=== PATIENT | male | born 1975 | race Asian ===

== ENCOUNTER 2018-05-15 19:47 | Emergency (ER) | payer OTHER ==
[~2018-05-15] VITALS: Ht 165.1 cm; Wt 74.0 kg
[2018-05-15] MEDS ORDERED: LIDOCAINE-MPF 1%, 5ML ONE (20:39)
[2018-05-15] MEDS ORDERED: LIDOCAINE-MPF 1%, 5ML INFIL ONE (21:00)
[2018-05-15] MEDS ORDERED: COLCHICINE 0.6 MG TABLET ONE ×2 (21:17→22:37)
--- NOTE | 2018-05-15 21:26 | NUR ---
RECEIVED REPORT FROM NAOMY TRIMBLE TO [facility] PT. CRUZ IN FOR A JOINT ASPIRATION. PT. MEDICATED PER MAY.
[2018-05-15] MEDS: COLCHICINE 0.6 MG TABLET PO SCH ×2 (22:33→22:44)
[2018-05-15] MEDS ORDERED: COLCHICINE 0.6 MG TABLET PO SCH (23:00)
[2018-05-15 23:22] VITALS: BP 111/76
== END 2018-05-15 23:42 | disposition home or self-care (01) ==
LOC: ED 22:06
DX: M25.462 Effusion, left knee (principal); M10.9 Gout, unspecified
CPT/HCPCS: 82945; 84157; 84560; 85810; 87070; 87205; 89050; 89060; 99284